=== PATIENT | male | born 1980 | race Caucasian/White ===

== ENCOUNTER 2017-02-26 14:17 | Inpatient (IN) | payer OTHER ==
--- NOTE | 2017-02-26 14:43 | ED ---
General Adult HPI <Anthony Gonzalez - Last Filed: 02/26/17 18:23> - General Source: patient, RN notes reviewed Mode of arrival: ambulatory Limitations: no limitations <Juan Angeles - Last Filed: 02/26/17 18:33> - General Chief complaint: Psychiatric Symptoms Stated complaint: Mental Health Time Seen by Provider: 02/26/17 14:36 - History of Present Illness Initial comments: Patient 36-year-old male who presents emergency room today with chief complaint of suicidal ideation. He does admit that he has had thoughts of hurting himself last few days. States had thoughts in the past as well. States he did see a therapist or counselor in the past but did not think it helped to stop seeing them. He states he has been on medications and off. States does not feel like the medication helps. Patient states he didn't come here today because doesn't want have helped. States he does not want to feel this way. Patient states not had any specific falls this time. States is the reason that he is here today. He denies any other complaints or symptoms at this time. Patient denies any recent fever, chills, shortness of breath, chest pain, back pain, abdominal pain, nausea or vomiting, numbness or tingling, dysuria or hematuria, constipation or diarrhea, headaches or visual changes, or any other complaints. (Juan Angeles) - Related Data Home Medications Medication Instructions Recorded Confirmed HYDROcodone/APAP 10-325MG [[place] 1 tab PO TID 02/20/15 02/26/17 10] Ascorbic Acid [Vitamin C] 1,000 mg PO DAILY 02/26/17 02/26/17 Testosterone Cypionate 200 mg IM Q14D 02/26/17 02/26/17 [Depo-Testosterone] Allergies Allergy/AdvReac Type Severity Reaction Status Date / Time No Known Allergies Allergy Verified 02/26/17 15:05 Review of Systems ROS Other: All systems not noted in ROS Statement are negative. <Anthony Gonzalez - Last Filed: 02/26/17 18:23> ROS Other: All systems not noted in ROS Statement are negative. <Juan Angeles - Last Filed: 02/26/17 18:33> ROS Statement: Those systems with pertinent positive or pertinent negative responses have been documented in the HPI. Past Medical History Past Medical History: Osteoarthritis (OA), Seizure Disorder Additional Past Medical History / Comment(s): had one seizure in teens after a closed head injury History of Any Multi-Drug Resistant Organisms: None Reported Past Surgical History: Orthopedic Surgery Additional Past Surgical History / Comment(s): carpel tunnel Past Anesthesia/Blood Transfusion Reactions: No Reported Reaction Past Psychological History: Depression Smoking Status: Current every day smoker Past Alcohol Use History: Occasional Past Drug Use History: Marijuana - Past Family History Mother Family Medical History: No Reported History <Juan Angeles - Last Filed: 02/26/17 18:33> General Exam <Anthony Gonzalez - Last Filed: 02/26/17 18:23> Limitations: no limitations <Juan Angeles - Last Filed: 02/26/17 18:33> - General Exam Comments Initial Comments: General: The patient is awake and alert, in no distress, and does not appear acutely ill. Eye: Pupils are equal, round and reactive to light, extra-ocular movements are intact. No nystagmus. There is normal conjunctiva bilaterally. No signs of icterus. Ears, nose, mouth and throat: There are moist mucous membranes and no oral lesions. Neck: The neck is supple, there is no tenderness or JVD. Cardiovascular: There is a regular rate and rhythm. No murmur, rub or gallop is appreciated. Respiratory: Lungs are clear to auscultation, respirations are non-labored, breath sounds are equal. No wheezes, stridor, rales, or rhonchi. Musculoskeletal: Normal ROM, no tenderness. Strength 5/5. Sensation intact. Pulses equal bilaterally 2+. Neurological: A&O x 3. CN II-XII intact, There are no obvious motor or sensory deficits. Coordination appears grossly intact. Speech is normal. Skin: Skin is warm and dry and no rashes or lesions are noted. Psychiatric: Cooperative, appropriate mood & affect, normal judgment. (Juan Angeles) Medical Decision Making <Anthony Gonzalez - Last Filed: 02/26/17 18:23> <Juan Angeles - Last Filed: 02/26/17 18:33> - Medical Decision Making I discussed with the patient is recent past history. The patient has had a history of depression he's been on various medications over the years. Up to 3 weeks ago he was on another medication prescribed by his family doctor has not seen a psychiatrist for several years. He states he's depressed without getting any specific reason such as family money or job. He does report that he is going through a separation by doesn't think that's the cause. He did mention that he has had thoughts of suicide. The patient denies ever acting out on this in the past. He mentioned to the psychiatric nurse that his plan would be to hang or shoot himself. In lieu of these facts and the patient's recent past I have completed a clinical certificate for the patient to be evaluated by the psychiatrist. Dr. Gonzalez (Anthony Gonzalez) Disposition <Anthony Gonzalez - Last Filed: 02/26/17 18:23> <Juan Angeles - Last Filed: 02/26/17 18:33> Clinical Impression: Suicidal ideation Disposition: TRANSFER TO PSYCH HOSP/UNIT Condition: Stable Referrals: Jorge Govea MD [Primary Care Provider] - 1-2 days
[2017-02-26] MEDS ORDERED: MAGNESIUM HYDROXIDE 2,400 MG/10 ML CUP PO PRN (19:38)
[2017-02-26] MEDS ORDERED: LORazepam 1 MG TAB PO PRN (19:38)
[2017-02-26] MEDS ORDERED: ACETAMINOPHEN TAB 325 MG TAB PO PRN (19:38)
[2017-02-26] MEDS ORDERED: MAG HYDROX/AL HYDROX/SIMETH 30 ML CUP PO PRN (19:38)
[2017-02-26] MEDS ORDERED: ZIPRASIDONE 20 MG VIAL IM PRN (19:38)
[2017-02-26 19:48] VITALS: RESP 16
[2017-02-26] MEDS: NICOTINE 21MG/24HR PATCH TRANSDERM SCH (20:57)
[2017-02-27 06:23] VITALS: BP 118/73; PULSE 89; TEMP 97.8
[2017-02-27] MEDS: NICOTINE 21MG/24HR PATCH TRANSDERM SCH (08:49)
[2017-02-27] MEDS ORDERED: ASCORBIC ACID 500 MG TAB PO SCH (09:00)
--- NOTE | 2017-02-27 10:22 | P.HP ---
Psychiatric H&P - . H&P Date: 02/27/17 History & Physical: DATE OF SERVICE: 02/27/2017 IDENTIFYING DATA: This patient is a 36-year-old single male who was admitted to the mental health unit through emergency room after presenting with report of suicidal ideation. HISTORY OF PRESENT ILLNESS: The patient presents with with history of having suicidal ideation for the past 3-4 days, with thoughts of either hanging or shooting self. Patient reports he did not come to be admitted but that he was forced to sign a voluntary or they would have proceeded through a legal mechanism. Patient states that he came to the emergency room to talk to someone and to be referred to a psychiatrist. Patient reports that he has had depression in the past approximately 10 years ago he took Wellbutrin and did okay. Patient reports that he was depressed a few months ago and his doctor put him on by Ba, which he took for about 3 months and began to taper it off last month. Says he went from 40-20-10 and then stopped it. Patient states that he notices he gets depressed in the winter time but when summer comes his mood is better. Patient denies history of attempting suicide. Patient denies current substance abuse. Patient denies depression or sadness but he does report he is anxious and that he left work yesterday due to anxiety. Patient reports his sleep is good, appetite is good overall says life is good. He did not report that he and his are having some marital problems that might have been a trigger for this. PAST PSYCHIATRIC HISTORY: 40-20-10 vibryand, welbutrin 150mg, for 1 year, every winter mood gets low. PAST MEDICAL HISTORY: none. ALLERGIES: No known drug allergies. CHEMICAL DEPENDENCY HISTORY: currently no use, but might use etoh a couple times a month but varies and will not have, patient states that he does not drink much in the wintertime, will drink in the summer when he is out deer hunting and may also at that time have a hit of marijuana. Denies drinking to intoxication, no past history of driving under the influence charges or convictions. FAMILY PSYCHIATRIC HISTORY: mother, uncle, nephew, son, sister all have either depression, anxiety and possibly bipolar. Denies any family committing suicide. FAMILY CHEMICAL DEPENDENCY HISTORY:sister-etoh, opiates. LEGAL HISTORY: none. 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 Father worked 12 hours a day 7 days a week. Good relationship iwth mother, father not much of talker but sees weekly. Academically average, gradutd from . 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 x2 to same person, 4 children, 3 with current , 1 with other, who has son, he as 3 others. spoke to and told her they have been having conflict but patient did not reveal this. . MENTAL STATUS EXAM: Patient alert and oriented 3, good eye contact, well groomed in street clothing. Cooperative Speech normal volume, rate and production. Coherent, logical and goal directed thought process. No MARIOLA, no FOI. No TB/TW/ TI Denied auditory and visual hallucinations. Denied paranoid ideation, delusions or IOR. Memory grossly intact Cognition average Recalled 3/0, 3/5; Mood neutral to euthymic , affect full range, decreased intensity , congruent with mood. Denies suicidal ideation, denies homicidal ideation. Insight partial ; Judgment grossly intact for treatment purposes STRENGTHS: housing, job. WEAKNESSES: limited insight IMPRESSIONS: 36-year-old male presented to the emergency room requesting help for suicidal ideation. He denies the significance of having a plan i.e. to hang or shoot himself. He was admitted under voluntary and feels that he was forced to sign in. He reports that his mood was not depressed yesterday that he was anxious and wanted to get rid of the suicide thoughts came to the hospital to get a referral to a psychiatrist. He states he did attempt to see his family doctor who was not in the office and he did not feel comfortable talking with the nurse practitioner there. Patient denies any past history of suicide attempts. Patient has been on an antidepressant and tapered himself off that over the past month. Patient has one previous episode of depression that was treated with medication, approximately 10 years ago, treated with Wellbutrin. Patient does endorse symptoms of seasonal affective disorder, being that he has a lower mood in the winter time, some anhedonia, and some reduced motivation. Reports in the summer he is very active and has not had depression or low mood during the summer months. Patient reports that he has a strong family history of depression and anxiety, he thinks his sister is diagnosed with bipolar, but he sees that she also has problems with alcohol and opiates. Patient denies symptoms of depression anhedonia fatigue and hopelessness helplessness worthlessness. Patient does not endorse symptoms of hypomania or giselle, does not meet criteria for bipolar disorder. There is no family history of completed suicide. Patient is not abusing substances, occasional cannabis and alcohol. Patient is not a danger to self, he has suicidal ideation but he has no intent on acting on those thoughts, the guns have been removed from his house, and patient is willing to consider medication. Patient does not require inpatient psychiatric admission. He safe to be treated in outpatient setting. Guns have been removed. Patient has history of major depressive disorder possibly 2 episodes, but has depression in the wintertime that may not meet criteria for MDD, should consider SA D. Suicide ideation Depression, unspecified History of recurrent major depressive disorder Rule out SA D (seasonal affective disorder) PLAN: D/C after family meeting. Due to the family history of depression and anxiety, and his suicidal ideation without the depressed mood, discussed using a different medication than an antidepressant, that might protect him both from suicide and depressive episodes in the wintertime. Discussed lithium, side effects. Patient agreed Labs pending [place] 150mg now, 300mg QHS. SW will arrange outpatient psychiatric follow up. . Allergies Allergy/AdvReac Type Severity Reaction Status Date / Time No Known Allergies Allergy Verified 02/26/17 20:41 Vital Signs Temp 97.8 F 02/27/17 06:22 Pulse 89 02/27/17 06:22 Resp 16 02/27/17 06:22 BP 118/73 02/27/17 06:22 Pulse Ox 99 02/26/17 19:12 Intake & Output 02/26/17 02/27/17 02/27/17 18:59 06:59 18:59 Weight 108.862 kg 02/27/17 09:39 02/27/17 10:33 02/27/17 10:50
[2017-02-27] MEDS ORDERED: LITHIUM CARBONATE 150 MG CAP PO STA (10:28)
[2017-02-27 11:37] LABS: Basophils % (A) 1 %; CH 29.1; CHCM 31.6; Eosinophils # (A) 0.2 k/uL (0-0.7); Eosinophils % (A) 2 %; HCT 56.1 % (39.0-53.0); HDW 2.35; HGB 17.5 gm/dL (13.0-17.5); Luc # (Auto) 0.13; Luc % (Auto) 2; Lymphocytes # (A) 1.3 k/uL (1.0-4.8); Lymphocytes % (A) 16 %; MCH 28.7 pg (25.0-35.0); MCHC 31.1 g/dL (31.0-37.0); MCV 92.3 fL (80.0-100.0); Mean Platelet Volume 7.3; Monocytes # (A) 0.6 k/uL (0-1.0); Monocytes % (A) 8 %; Neutrophils # (A) 5.8 k/uL (1.3-7.7); Neutrophils % (A) 72 %; RBC 6.08 m/uL (4.30-5.90); RDW 13.3 % (11.5-15.5); WBC (Perox) 8.29
[2017-02-27 11:56] LABS: ALT 47 U/L (21-72); AST 38 U/L (17-59); Alkaline Phosphatase 55 U/L (38-126); Anion Gap 10 mmol/L; Blood Urea Nitrogen 13 mg/dL (9-20); Calcium 9.8 mg/dL (8.4-10.2); Carbon Dioxide 29 mmol/L (22-30); Chloride 101 mmol/L (98-107); Glucose 89 mg/dL (74-99); Non-African American GFR(MDRD) >60 (>60 ml/min/1.73 sqM); Potassium 4.6 mmol/L (3.5-5.1); Sodium 140 mmol/L (137-145); Total Bilirubin 0.9 mg/dL (0.2-1.3); Total Protein 7.3 g/dL (6.3-8.2)
--- NOTE | 2017-02-27 11:58 | P.DS ---
Providers Date of admission: 02/26/17 18:48 Expected date of discharge: 02/27/17 Attending physician: Nilsa Paula MD Consults: 02/26/17 19:38 Consult Physician Routine Consulting Provider: Maximiliano Acuña Consult Reason/Comments: H and P and medical management Do you want consulting provider notified?: Yes Primary care physician: Jorge Rodriguez [facility] Course: IDENTIFYING DATA: This patient is a 36-year-old single male who was admitted to the mental health unit through emergency room after presenting with report of suicidal ideation. HISTORY OF PRESENT ILLNESS: The patient presents with with history of having suicidal ideation for the past 3-4 days, with thoughts of either hanging or shooting self. Patient reports he did not come to be admitted but that he was forced to sign a voluntary or they would have proceeded through a legal mechanism. Patient states that he came to the emergency room to talk to someone and to be referred to a psychiatrist. Patient reports that he has had depression in the past approximately 10 years ago he took Wellbutrin and did okay. Patient reports that he was depressed a few months ago and his doctor put him on by Ba, which he took for about 3 months and began to taper it off last month. Says he went from 40-20-10 and then stopped it. Patient states that he notices he gets depressed in the winter time but when summer comes his mood is better. Patient denies history of attempting suicide. Patient denies current substance abuse. Patient denies depression or sadness but he does report he is anxious and that he left work yesterday due to anxiety. Patient reports his sleep is good, appetite is good overall says life is good. He did not report that he and his are having some marital problems that might have been a trigger for this. MENTAL STATUS EXAM: Patient alert and oriented 3, good eye contact, well groomed in street clothing. Cooperative Speech normal volume, rate and production. Coherent, logical and goal directed thought process. No MARIOLA, no FOI. No TB/TW/ TI Denied auditory and visual hallucinations. Denied paranoid ideation, delusions or IOR. Memory grossly intact Cognition average Recalled 3/0, 3/5; Mood neutral to euthymic , affect full range, decreased intensity , congruent with mood. Denies suicidal ideation, denies homicidal ideation. Insight partial ; Judgment grossly intact for treatment purposes IMPRESSIONS: 36-year-old male presented to the emergency room requesting help for suicidal ideation. He denies the significance of having a plan i.e. to hang or shoot himself. He was admitted under voluntary and feels that he was forced to sign in. He reports that his mood was not depressed yesterday that he was anxious and wanted to get rid of the suicide thoughts came to the hospital to get a referral to a psychiatrist. He states he did attempt to see his family doctor who was not in the office and he did not feel comfortable talking with the nurse practitioner there. Patient denies any past history of suicide attempts. Patient has been on an antidepressant and tapered himself off that over the past month. Patient has one previous episode of depression that was treated with medication, approximately 10 years ago, treated with Wellbutrin. Patient does endorse symptoms of seasonal affective disorder, being that he has a lower mood in the winter time, some anhedonia, and some reduced motivation. Reports in the summer he is very active and has not had depression or low mood during the summer months. Patient reports that he has a strong family history of depression and anxiety, he thinks his sister is diagnosed with bipolar, but he sees that she also has problems with alcohol and opiates. Patient denies symptoms of depression anhedonia fatigue and hopelessness helplessness worthlessness. Patient does not endorse symptoms of hypomania or giselle, does not meet criteria for bipolar disorder. There is no family history of completed suicide. Patient is not abusing substances, occasional cannabis and alcohol. Patient is not a danger to self, he has suicidal ideation but he has no intent on acting on those thoughts, the guns have been removed from his house, and patient is willing to take medication. Family, want him to come home. Patient does not require inpatient psychiatric admission. He safe to be treated in outpatient setting. Guns have been removed. Patient has history of major depressive disorder possibly 2 episodes, with a lowering of mood that may be depression in the wintertime that may not meet criteria for MDD, should consider SAD. Suicide ideation Depression, unspecified History of recurrent major depressive disorder Rule out SA D (seasonal affective disorder) PLAN: D/C after family meeting. Due to the family history of depression and anxiety, and his suicidal ideation without the depressed mood, discussed using a different medication than an antidepressant, that might protect him both from suicide and depressive episodes in the wintertime. Discussed lithium, side effects. Patient agreed Labs pending [place] 150mg now, 300mg QHS. SW will arrange outpatient psychiatric follow up. . Allergies Allergy/AdvReac Type Severity Reaction Status Date / Time No Known Allergies Allergy Verified 02/26/17 20:41 Vital Signs Temp 97.8 F 02/27/17 06:22 Pulse 89 02/27/17 06:22 Resp 16 02/27/17 06:22 BP 118/73 02/27/17 06:22 Pulse Ox 99 02/26/17 19:12 Intake & Output 02/26/17 02/27/17 02/27/17 18:59 06:59 18:59 Weight 108.862 kg 02/27/17 09:39 02/27/17 10:33 02/27/17 10:50 Pertinent Studies: none Procedures: none Patient Condition at Discharge: Stable Plan - Discharge Summary New Discharge Prescriptions: New [place] Carbonate 300 mg PO HS #30 cap Continue HYDROcodone/APAP 10-325MG [[place] 10-325] 1 tab PO TID Ascorbic Acid [Vitamin C] 1,000 mg PO DAILY Discontinued Testosterone Cypionate [Depo-Testosterone] 200 mg IM Q14D Discharge Medication List HYDROcodone/APAP 10-325MG [[place] 10-325] 1 tab PO TID 02/20/15 [History] Ascorbic Acid [Vitamin C] 1,000 mg PO DAILY 02/26/17 [History] [place] Carbon[place] 300 mg PO HS #30 cap 02/27/17 [Rx] Follow up Appointment(s)/Referral(s): Jorge Govea MD [Primary Care Provider] - 1-2 days Discharge Disposition: HOME SELF-CARE
--- NOTE | 2017-02-27 20:30 | CONS ---
DATE OF CONSULTATION: 02/27/2017 REASON FOR CONSULTATION: Medical management requested by Dr. Paula. CONSULTATION: This is a pleasant 36-year-old patient of Dr. Govea who has been depressed for quite a while; became suicidal; admitted to the psychiatric unit. I saw this patient earlier today. Patient's chronic stable medical conditions include osteoarthritis, seizure disorder from a head injury, due for surgery on his feet. Patient is rather depressed. Patient is also a smoker. Admitted for the same. Patient's appetite has gone down. Some trouble sleeping. Just feeling rundown, depressed. REVIEW OF SYSTEMS: CONSTITUTIONAL: Tired. HEENT: None. RESPIRATORY: None. CARDIOVASCULAR: None. GASTROINTESTINAL: None. GENITOURINARY: None. MUSCULOSKELETAL: Pain in the foot. DERMATOLOGICAL: None. HEMATOLOGIC: None. LYMPHATICS: None. PSYCHIATRY: Depressed. Suicidal. NEUROLOGICAL: None. PAST HISTORY: 1. Osteoarthritis. 2. Seizures. 3. Depression. 4. Navicular bone disorder. PAST SURGICAL HISTORY: 1. Orthopedic surgery. 2. Carpal tunnel. SOCIAL HISTORY: Smokes a pack and a half to 2 packs a day. Marijuana rarely. . 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 Alcohol occasionally. FAMILY HISTORY: Reviewed; noncontributory to presentation. HOME MEDICATIONS: 1. [place] 10 one tablet t.i.d. 2. Vitamin C 1000 mg a day. ALLERGIES: NONE. On examination, temperature 97.8, pulse 89, respiration 16, blood pressure 118/73, pulse ox 99% on room air. GENERAL APPEARANCE: Well built, BMI of 32.5. Sitting up, not in distress. EYES: Pupils equal. Conjunctivae normal. HEENT: External appearance of nose and ears normal. Oral cavity normal. NECK: JVD not raised. Mass not palpable. RESPIRATORY: Effort normal. LUNGS: Fair air entry. CARDIOVASCULAR: First and second sounds normal. No edema. ABDOMEN: Soft, nontender. Liver and spleen not palpable. LYMPHATIC: No lymph node palpable in neck or axillae. PSYCHIATRY: And oriented x3. Mood and affect anxious-appearing. NEUROLOGICAL: Pupils equal. Cranial nerves grossly intact. Power and sensation grossly intact. DERMATOLOGICAL: Tattoos are present. INVESTIGATIONS: White count 8, hemoglobin 17.5, potassium 4.6. TSH is normal. ASSESSMENT: 1. Chronic nicotine dependence. Patient is a smoker. 2. Primary osteoarthritis in multiple joints, bilateral. 3. Obesity; body mass index 32.5. PLAN: Patient advised against smoking ( ) nicotine patch. Can take Tylenol for pain medications. Patient was counseled extensively against smoking. Patient does not take any seizure medication. Patient should see a dietitian for weight loss measures. Care was discussed with the patient. Thank you, Dr. Paula.
[2017-02-27] MEDS ORDERED: LITHIUM CARBONATE 300 MG CAP PO SCH (21:00)
== END 2017-02-27 13:57 | disposition home or self-care (01) | DRG 885 ==
LOC: EC 14:17 → 3MHU 18:48
PROVIDERS: ADMIT Psychiatry & Neurology Addiction Medicine; ATTEND Psychiatry & Neurology Addiction Medicine
DX: F39 Unspecified mood [affective] disorder (principal); R45.851 Suicidal ideations; E66.9 Obesity, unspecified; F17.200 Nicotine dependence, unspecified, uncomplicated; M19.91 Primary osteoarthritis, unspecified site; M89.8X7 Other specified disorders of bone, ankle and foot; F41.9 Anxiety disorder, unspecified; F12.90 Cannabis use, unspecified, uncomplicated; Z81.8 Family history of other mental and behavioral disorders; Z68.32 Body mass index [BMI] 32.0-32.9, adult; Z71.6 Tobacco abuse counseling; Z79.891 Long term (current) use of opiate analgesic; Z79.899 Other long term (current) drug therapy; Z86.69 Personal history of other diseases of the nervous system and sense organs; Z87.820 Personal history of traumatic brain injury; Z86.59 Personal history of other mental and behavioral disorders; Z63.0 Problems in relationship with spouse or partner; Z81.1 Family history of alcohol abuse and dependence; Z81.3 Family history of other psychoactive substance abuse and dependence
CPT/HCPCS: 80053; 82075; 84443; 85025

== ENCOUNTER → 2017-04-30 | Outpatient (CLI) | payer OTHER ==
--- NOTE | 2017-04-30 23:14 | MR ---
EXAMINATION TYPE: MR knee RT wo con DATE OF EXAM: 04/30/2017 COMPARISON: NONE HISTORY: knee pain TECHNIQUE: Multiplanar, multisequence imaging of the right knee is performed without IV contrast. FINDINGS: The anterior and posterior cruciate ligaments are intact. There is a small knee joint effusion. There are small synovial cysts posterior to the medial femoral condyle.. These measure up to 1.5 cm. The c ollateral ligaments appear intact. There is a intrasubstance horizontal tear of the posterior horn of the medial meniscus. There is no evidence of a fracture. Joint spaces are fairly normal. I see no fo fredi bone destruction. IMPRESSION: Knee joint effusion with small posterior synovial cysts. Small horizontal tear within the posterior h orn medial meniscus. No evidence of ligamentous tear.
== END | disposition home or self-care (01) ==
LOC: RADMRIMAIN 19:45
PROVIDERS: ATTEND Orthopaedic Surgery
DX: M25.461 Effusion, right knee (principal); M71.38 Other bursal cyst, other site; S83.241A Other tear of medial meniscus, current injury, right knee, initial encounter; X58.XXXA Exposure to other specified factors, initial encounter

== ENCOUNTER 2018-04-04 12:22 | Emergency (ER) | payer OTHER ==
[2018-04-04 12:39] VITALS: BP 118/76; PULSE 86; RESP 18; TEMP 97.8
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
--- NOTE | 2018-04-04 13:10 | XR ---
EXAMINATION TYPE: XR clavicle RT , 2 VIEWS DATE OF EXAM ORDERED: 04/04/2018 HISTORY: Pain. COMPARISON: None. FINDINGS: There is a fracture of the middle one third of the clavicle which is comminuted and is dis placed by approximately 3.4 cm. The AC joint appears intact. The coracoclavicular distance remains no rmal. IMPRESSION: MILDLY DISPLACED FRACTURE OF THE MIDSHAFT OF THE CLAVICLE.
== END 2018-04-04 13:33 | disposition home or self-care (01) ==
LOC: EC 12:22
DX: S42.021A Displaced fracture of shaft of right clavicle, initial encounter for closed fracture (principal); M19.90 Unspecified osteoarthritis, unspecified site; F17.200 Nicotine dependence, unspecified, uncomplicated; Z98.890 Other specified postprocedural states; Z79.891 Long term (current) use of opiate analgesic; V29.9XXA Motorcycle rider (driver) (passenger) injured in unspecified traffic accident, initial encounter; Y93.55 Activity, bike riding
CPT/HCPCS: 99283

== ENCOUNTER 2023-05-28 20:32 | Emergency (ER) | payer OTHER ==
--- NOTE | 2023-05-28 21:58 | ED ---
General Adult HPI - General Chief complaint: Abdominal Pain Stated complaint: Abdominal Pain Time Seen by Provider: 05/28/23 21:07 Source: patient Mode of arrival: ambulatory Limitations: no limitations - History of Present Illness Initial comments: Dictation was produced using [employer] dictation software. please excuse any grammatical, word or spelling errors. Chief Complaint: 39-year-old male past medical history of seizure disorder presents to the ER for abdominal pain History of Present Illness: Patient is a 39-year-old female presents to the ER for abdominal pain. Patient has been having symptoms since Thursday. Patient was seen at the urgent care. He is been having intermittent bouts of right lower quadrant and periumbilical abdominal pain was seen by physician life enrichment assistant at urgent care clinic. She checked patient come to the ER for concerns of possible acute appendicitis. Patient had significant right lower quadrant pain at urgent care however his pain is improved. Does feel nauseated. Denies any testicular or penile pain. The ROS documented in this emergency department record has been reviewed and confirmed by me. Those systems with pertinent positive or negative responses have been documented in the HPI. All other systems are other negative and/or noncontributory. - Related Data Home Medications Medication Instructions Recorded Confirmed HYDROcodone/APAP 10-325MG [[place] 1 tab PO TID 02/20/15 04/04/18 10-325] Ascorbic Acid [Vitamin C] 1,000 mg PO DAILY 02/26/17 04/04/18 Previous Rx's Medication Instructions Recorded [place] Carbonate 300 mg PO HS #30 cap 02/27/17 Allergies Allergy/AdvReac Type Severity Reaction Status Date / Time No Known Allergies Allergy Verified 05/28/23 20:41 Review of Systems ROS Statement: Those systems with pertinent positive or pertinent negative responses have been documented in the HPI. ROS Other: All systems not noted in ROS Statement are negative. Past Medical History Past Medical History: Osteoarthritis (OA), Seizure Disorder Additional Past Medical History / Comment(s): had one seizure in teens after a closed head injury History of Any Multi-Drug Resistant Organisms: None Reported Past Surgical History: Orthopedic Surgery Additional Past Surgical History / Comment(s): carpel tunnel Past Anesthesia/Blood Transfusion Reactions: No Reported Reaction Past Psychological History: Depression Past Alcohol Use History: Occasional Past Drug Use History: Marijuana - Past Family History Mother Family Medical History: No Reported History General Exam - General Exam Comments Initial Comments: PHYSICAL EXAM: General Impression: Alert and oriented x3, not in acute distress HEENT: Normocephalic atraumatic, extra-ocular movements intact, pupils equal and reactive to light bilaterally, mucous membranes moist. Cardiovascular: Heart regular rate and rhythm Chest: Able to complete full sentences, no retractions, no tachypnea Abdomen: abdomen soft, periumbilical palpatory tenderness, no rebound tenderness to the right lower quadrant, no pain in McBurney's point, non-distended, no org anomegaly Musculoskeletal: Pulses present and equal in all extremities, no peripheral edema Motor: no focal deficits noted Neurological: CN II-XII grossly intact, no focal motor or sensory deficits noted Skin: Intact with no visualized rashes Psych: Normal affect and mood Limitations: no limitations Course Vital Signs 05/28/23 05/28/23 20:38 20:41 Temperature 98.8 F 98 F Pulse Rate 90 79 Respiratory 20 18 Rate Blood Pressure 133/78 138/75 O2 Sat by Pulse 97 98 Oximetry Medical Decision Making - Medical Decision Making Was pt. sent in by a medical professional or institution (, PA, AIR BRUSH DECORATOR, urgent care, hospital, or residential...) When possible be specific @ -Urgent care Did you speak to anyone other than the patient for history (EMS, parent, family, police, friend...)? What history was obtained from this source @ -No Did you review nursing and triage notes (agree or disagree)? Why? @ -I reviewed and agree with nursing and triage notes Were old charts reviewed (outside hosp., previous admission, EMS record, old EKG, old radiological studies, urgent care reports/EKG's, residential records)? Report findings @ -No old charts were reviewed Differential Diagnosis (chest pain, altered mental status, abdominal pain women, abdominal pain men, vaginal bleeding, musculoskeletal, weakness, fever, dyspnea, syncope, headache, dizziness, GI bleed, back pain, seizure, CVA, palpatations, mental health)? @ -Differential Abdominal Pain Men: Appendicitis, cholecystitis, diverticulosis, ischemic bowel, pancreatitis, hepatitis, UTI, gastroenteritis, AAA, incarcerated hernia, bowel obstruction, constipation, inflammatory bowel, hepatitis, peptic ulcer disease, splenic infarction, perforated viscus, testicular torsion, this is not meant to be an al l-inclusive list EKG interpreted by me (3pts min.). @ -None done X-rays interpreted by me (1pt min.). @ -None done CT interpreted by me (1pt min.). @ -No acute process on CT abdomen and pelvis U/S interpreted by me (1pt. min.). @ -None done What testing was considered but not performed or refused? (CT, X-rays, U/S, labs)? Why? @ -None What meds were considered but not given or refused? Why? @ -None Did you discuss the management of the patient with other professionals (professionals i.e. , PA, AIR BRUSH DECORATOR, lab, RT, psych nurse, medical social worker, financial aid counselor, te acher, civil preparedness training officer, outpatient case manager)? Give summary @ -No Was smoking cessation discussed for >3mins.? @ -No Was critical care preformed (if so, how long)? @ -No Were there social determinants of health that impacted care today? How? (Homelessness, low income, unemployed, alcoholism, drug addiction, transportation, low edu. Level, literacy, decrease access to med. care, group home, rehab)? @ -No Was there de-escalation of care discussed even if they declined (Discuss DNR or withdrawal of care, Hospice)? DNR status @ -No What co-morbidities impacted this encounter? (DM, HTN, Smoking, COPD, CAD, Cancer, CVA, ARF, Chemo, Hep., AIDS, mental health diagnosis, sleep apnea, morbid obesity)? @ -None Was patient admitted / discharged? Hospital course, mention meds given and rou te, prescriptions, significant lab abnormalities, going to OR and other pertinent info. @ -42-year-old male sent in from urgent care for concerns of acute appendicitis. Vital signs stable. Labs are unremarkable. No leukocytosis. CT imaging is unremarkable. Patient reevaluated at bedside 1138 found to be well- appearing. Patient discharged last primary care doctor. Undiagnosed new problem with uncertain prognosis? @ -No Drug Therapy requiring intensive monitoring for toxicity (Heparin, Nitro, Insulin, Cardizem)? @ -No Were any procedures done? @ -No Diagnosis/symptom? Acute, or Chronic, or Acute on Chronic? Uncomplicated (without systemic symptoms) or Complicated (systemic symptoms)? @ -Abdominal pain, no high-risk features Side effects of treatment? @ -No Exacerbation, Progression, or Severe Exacerbation? @ -No Poses a threat to life or bodily function? How? (Chest pain, [place], [place], pneumonia, PE, COPD, DKA, ARF, appy, cholecystitis, CVA, Diverticulitis, Homicidal, Suicidal, threat to staff... and all critical care pts) @ -No - Lab Data Result diagrams: 05/28/23 22:54 05/28/23 22:54 Lab Results 05/28/23 05/28/23 Range/Units 22:54 22:54 WBC 9.8 (3.8-10.6) k/uL RBC 4.85 (4.30-5.90) m/uL Hgb 14.7 (13.0-17.5) gm/dL Hct 44.0 (39.0-53.0) % MCV 90.6 (80.0-100.0) fL MCH 30.2 (25.0-35.0) pg MCHC 33.4 (31.0-37.0) g/dL RDW 12.7 (11.5-15.5) % Plt Count 263 (150-450) k/uL MPV 7.4 Neutrophils % 65 % Lymphocytes % 23 % Monocytes % 7 % Eosinophils % 4 % Basophils % 0 % Neutrophils # 6.4 (1.3-7.7) k/uL Lymphocytes # 2.2 (1.0-4.8) k/uL Monocytes # 0.7 (0-1.0) k/uL Eosinophils # 0.4 (0-0.7) k/uL Basophils # 0.0 (0-0.2) k/uL Sodium 138 (137-145) mmol/L Potassium 3.7 (3.5-5.1) mmol/L Chloride 102 (98-107) mmol/L Carbon Dioxide 27 (22-30) mmol/L Anion Gap 9 mmol/L BUN 15 (9-20) mg/dL Creatinine 0.97 (0.66-1.25) mg/dL Est GFR (CKD-EPI)AfAm >90 (>60 ml/min/1.73 sqM) Est GFR (CKD-EPI)NonAf >90 (>60 ml/min/1.73 sqM) Glucose 112 H (74-99) mg/dL Calcium 9.5 (8.4-10.2) mg/dL Disposition Clinical Impression: Abdominal pain Disposition: HOME SELF-CARE Condition: Good Instructions (If sedation given, give patient instructions): Abdominal Pain (ED) Is patient prescribed a controlled substance at d/c from ED?: No Referrals: Jorge Govea MD [Primary Care Provider] - 1-2 days Time of Disposition: 23:39
[2023-05-28 23:05] LABS: Basophils % (A) 0 %; Eosinophils # (A) 0.4 k/uL (0-0.7); Eosinophils % (A) 4 %; HGB 14.7 gm/dL (13.0-17.5); Lymphocytes # (A) 2.2 k/uL (1.0-4.8); Lymphocytes % (A) 23 %; MCH 30.2 pg (25.0-35.0); MCHC 33.4 g/dL (31.0-37.0); MCV 90.6 fL (80.0-100.0); Mean Platelet Volume 7.4; Monocytes # (A) 0.7 k/uL (0-1.0); Monocytes % (A) 7 %; Neutrophils # (A) 6.4 k/uL (1.3-7.7); Neutrophils % (A) 65 %; Platelet Count 263 k/uL (150-450); RBC 4.85 m/uL (4.30-5.90); RDW 12.7 % (11.5-15.5); WBC 9.8 k/uL (3.8-10.6)
[2023-05-28 23:16] LABS: African American GFR (CKD) >90 (>60 ml/min/1.73 sqM); Anion Gap 9 mmol/L; Blood Urea Nitrogen 15 mg/dL (9-20); Calcium 9.5 mg/dL (8.4-10.2); Carbon Dioxide 27 mmol/L (22-30); Chloride 102 mmol/L (98-107); Glucose 112 mg/dL (74-99); Non-African American GFR(CKD) >90 (>60 ml/min/1.73 sqM); Potassium 3.7 mmol/L (3.5-5.1); Sodium 138 mmol/L (137-145)
--- NOTE | 2023-05-28 23:30 | CT ---
EXAMINATION: CT ABDOMEN AND PELVIS WITH IV CONTRAST DATE OF EXAMINATION: 05/28/2023. COMPARISON: None available. INDICATION: Umbilical and right lower quadrant pain. PROCEDURE: Axial CT of the abdomen and pelvis was performed with contrast and sagittal and coronal reformatted images were performed. CT dose lowering techniques were used, to include: automated expos ure control, adjustment for patient size, and/or use of iterative reconstruction. 100 mL of Isovue-37 0 was given intravenously. FINDINGS: LOWER CHEST : The visualized lung bases are clear. There are no pleural or pericardial effusions. ABDOMEN: Liver and Biliary system: Normal. Adrenal glands: Normal. Kidneys and ureters: Normal. Spleen: Normal. Pancreas: Normal. Gallbladder: Normal. Lymph nodes, Peritoneum and mesentery: There is no mesenteric or retroperitoneal lymphadenopathy. Gastrointestinal tract: There are no dilated loops of bowel or free intraperitoneal air. The appe ndix is normal. Aorta/IVC: No aortic aneurysm. IVC normal. Abdominal wall: Normal. PELVIS: Fluid: There is no free fluid in the pelvis. Lymph Nodes: There is no pelvic or inguinal lymphadenopathy.. Urinary bladder: Normal. BONES: There are no osseous destructive lesions.. ADDITIONAL SIGNIFICANT FINDINGS: None. IMPRESSION: No acute process within the abdomen or pelvis.
[2023-05-28 23:34] VITALS: RESP 18; TEMP 98
[2023-05-28] MEDS ORDERED: ONDANSETRON 4 MG ODT STARTER PACK 2 TAB BTL PO STA (23:39)
[2023-05-29 00:33] VITALS: BP 125/84; PULSE 78
== END 2023-05-29 00:33 | disposition home or self-care (01) ==
LOC: EC 20:32
DX: R10.33 Periumbilical pain (principal); F12.90 Cannabis use, unspecified, uncomplicated
CPT/HCPCS: 36415; 93005; 80048; 85025; 74177; 99284; S0119; Q9967

== ENCOUNTER → 2023-12-11 | Outpatient (CLI) | payer OTHER ==
--- NOTE | 2023-12-11 19:02 | CT ---
EXAMINATION TYPE: CT pelvis wo con CT DLP: 394.6 mGycm, Automated exposure control for dose reduction was used. DATE OF EXAM: 12/11/2023 6:57 PM COMPARISON: CT 05/28/2023 CLINICAL INDICATION:Male, 43 years old with history of K40.90 UNIL INGUINAL HERNIA, W/O OBST OR GANGR , NO; pain. hx of INGUINAL HERNIA TECHNIQUE: Axial CT pelvis wo con;Sagittal and coronal reformats were created on a separate workstat ion. Contrast used:(none if empty) Oral contrast used: without Oral Contrast (none if empty) FINDINGS: BLADDER: Unremarkable REPRODUCTIVE: Unremarkable. ABDOMEN & PELVIS STOMACH AND BOWEL: No evidence of bowel obstruction. Scattered colonic diverticula. PERITONEUM/RETROPERITONEUM: No evidence of pneumoperitoneum or free fluid. VASCULATURE: No evidence of aortic aneurysm. MUSCULOSKELETAL: No acute osseous abnormalities LYMPH NODES: No gross evidence for lymphadenopathy. SOFT TISSUE/ABDOMINAL WALL: No evidence for hernia. There is mild increase fat on the right compared to left. IMPRESSION: 1. Fatty changes in the right inguinal canal, no organizing fluid collection or evidence for hernia. Findings are unchanged from 05/28/2023 2. Colonic diverticulosis.
== END | disposition home or self-care (01) ==
LOC: RADCTMAIN 18:40
PROVIDERS: ATTEND Family Medicine
DX: K40.90 Unilateral inguinal hernia, without obstruction or gangrene, not specified as recurrent (principal); K57.30 Diverticulosis of large intestine without perforation or abscess without bleeding
CPT/HCPCS: 72192